=== PATIENT | male | born 1990 | race Caucasian/White ===

== ENCOUNTER 2020-09-27 18:57 | Emergency (ER) | payer SELFPAY ==
[~2020-09-27] VITALS: Ht 185.4 cm; Wt 96.5 kg
--- NOTE | 2020-09-27 20:27 | NUR ---
PT CAME IN [place], FATIGUE, BODY ACHES, CHILLS, AND COUGH. PT ALSO REPORTS HAVING LOSS OF SENSE OF TASTE THIS MORNING. PT RESTING IN [place]. BLANKET PROVIDED. AWAITING
[2020-09-27 21:30] VITALS: BP 111/75
[2020-09-27 21:58] LABS: BASOPHILS % (AUTO) 1 % (0-1); EOSINOPHILS % (AUTO) 7 % (1-7); LYMPHOCYTES % (AUTO) 30 % (22-44); MEAN CORPUSCULAR HEMOGLOBIN 31.7 pg (27.5-34.5); MEAN CORPUSCULAR HGB CONC 35.4 g/dL (33.2-36.2); MEAN PLATELET VOLUME 8.5 fL (7.4-10.4); MONOCYTES % (AUTO) 13 % (2-9); NEUTROPHILS % (AUTO) 50 % (42-75); PLATELET COUNT 151 x10^3/uL (130-400); RED BLOOD COUNT 4.88 x10^6/uL (4.38-5.82); RED CELL DISTRIBUTION WIDTH 12.4 % (9.4-14.8)
[2020-09-27 22:04] LABS: ALANINE AMINOTRANSFERASE 51 U/L (12-78); ALBUMIN 3.6 g/dL (3.4-5.0); ANION GAP 8 mmol/L (5-15); CALCIUM 8.6 mg/dL (8.5-10.1); CHLORIDE 107 mmol/L (98-107)
[2020-09-27 22:07] LABS: ALKALINE PHOSPHATASE 70 U/L (45-117); BILIRUBIN,TOTAL 0.7 mg/dL (0.2-1.0)
== END 2020-09-27 22:45 | disposition home or self-care (01) ==
LOC: ED 19:27
DX: B34.9 Viral infection, unspecified (principal); Z20.822 Contact with and (suspected) exposure to COVID-19; R50.9 Fever, unspecified
CPT/HCPCS: 36415; 71045; 80053; 83605; 84145; 85025; 99284; U0003; U0005